=== PATIENT | male | born 1990 | race African-American/Black ===

== ENCOUNTER 2022-05-14 10:24 | Emergency (ER) | payer SELFPAY ==
[2022-05-14 10:41] VITALS: BP 138/81; PULSE 67; RESP 16; TEMP 36.4; O2SAT 100
--- NOTE | 2022-05-14 11:43 | ED.GENADULT ---
HPI - General Adult General Chief complaint: Wound/Laceration Stated complaint: cyst to left jaw Time Seen by Provider: 05/14/22 11:04 History of Present Illness HPI narrative: 31-year-old male presenting to the emergency department for evaluation of a facial abscess. Patient states the abscess started a few days ago. Patient reports he did have it drained on Tuesday at [place] but the pain and swelling returned. Related Data Allergies Allergy/AdvReac Type Severity Reaction Status Date / Time Sulfa (Sulfonamide Allergy Unknown Verified 05/14/22 11:30 Antibiotics) Review of Systems Review of Systems: CONSTITUTIONAL: Denies fever, chills, or sweats. EYES: Denies visual changes, redness, or discharge. ENT: Denies rhinorrhea, congestion, sore throat, or otalgia. CARDIOVASCULAR: Denies chest pain, palpitations, or edema. RESPIRATORY: Denies cough or dyspnea. GASTROINTESTINAL: Denies abdominal pain, nausea, vomiting, or diarrhea. GENITOURINARY: Denies dysuria or hematuria. SKIN: Denies rash or itching. Left-sided facial swelling, see HPI MUSCULOSKELETAL: Denies back pain, joint pain, or myalgia. NEUROLOGIC: Denies headache, numbness, or weakness. Exam Narrative: APPEARANCE: Well appearing, no pain, no distress, well-nourished. HEAD: normocephalic, atraumatic. EYES: PERRLA/EOMI, conjunctivae clear. NOSE: Normal no drainage EARS:TMS clear with good light reflex. THROAT: Pharynx clear, no exudate. NECK: Supple. No adenopathy, no masses. RESPIRATORY: Airway patent, respirations nonlabored. Clear to auscultation bilaterally, no rales, rhonchi, wheezing. CARDIOVASCULAR: Regular rate and rhythm without murmurs rubs or gallops. ABDOMINAL: Soft, nontender, nondistended, normal bowel sounds MUSCULOSKELETAL: Moves all extremities. Strength/ROM intact, No edema, No calf tenderness. NEURO: Alert. Cranial nerves II through XII intact. Grossly intact SKIN: Warm, dry. Normal Color, large left-sided facial abscess along the edge of the mandible Course Course Emergency Course: Abscess was successfully drained. Patient was started antibiotics. Patient was encouraged to continue with close follow-up with his primary care physician. All question concerns were addressed. Vital Signs Vital signs: Vital Signs Temperature 97.5 F L 05/14/22 10:41 Pulse Rate 67 05/14/22 10:41 Respiratory Rate 16 05/14/22 10:41 Blood Pressure 138/81 05/14/22 10:41 Pulse Oximetry 100 05/14/22 10:41 Oxygen Delivery Room Air 05/14/22 10:41 Temperature 97.5 F L 05/14/22 10:41 Pulse Rate 67 05/14/22 10:41 Respiratory Rate 16 05/14/22 10:41 Blood Pressure 138/81 05/14/22 10:41 Pulse Oximetry 100 05/14/22 10:41 Oxygen Delivery Room Air 05/14/22 10:41 Procedures Abscess I/D face: Time of Incision: 12:13 Side (if applicable): left Local Anesthetic: lidocaine 1% Amount of anesthesia used (mL): 3 Technique: incised with #11 blade Amount of fluid expressed (mL): 10 Packing used?: iodoform I&D Results: Pus and Blood Abcess I&D Additional Comments: Patient tolerated the procedure well. Medical Decision Making Vital Signs Vital Signs: Vital Signs Temperature 97.5 F L 05/14/22 10:41 Pulse Rate 67 05/14/22 10:41 Respiratory Rate 16 05/14/22 10:41 Blood Pressure 138/81 05/14/22 10:41 Pulse Oximetry 100 05/14/22 10:41 Oxygen Delivery Room Air 05/14/22 10:41 Temperature 97.5 F L 05/14/22 10:41 Pulse Rate 67 05/14/22 10:41 Respiratory Rate 16 05/14/22 10:41 Blood Pressure 138/81 05/14/22 10:41 Pulse Oximetry 100 05/14/22 10:41 Oxygen Delivery Room Air 05/14/22 10:41 Discharge Plan Discharge Clinical Impression: Abscess Patient Disposition: Home, Self-Care Condition: Stable Instructions: Antibiotic Form, Abscess (ED) Additional Instructions: Antibiotic as directed until completed. wound care as dir
[2022-05-14] MEDS: CLINDAMYCIN HCL 150 MG CAP PO (12:30)
== END 2022-05-14 12:39 | disposition home or self-care (01) ==
PROVIDERS: Emergency Provider Emergency Medicine
DX: L02.01 Cutaneous abscess of face (principal)
CPT/HCPCS: 10061; 99283; A9270